=== PATIENT | male | born 1960 | race Caucasian/White ===

== ENCOUNTER 2023-09-28 23:00 | Inpatient (IN) | payer OTHER, SELFPAY ==
[2023-09-28] VITALS (11 sets, daily range): BP systolic 82–111; BP diastolic 38–66; BMI 27.8
[2023-09-28 21:19] LABS: % Basophils 0.8 % (0-2); % Eosinophils 0.9 % (0-6); % Immature Granulocytes 0.3 % (0-0.5); % Lymphocytes 14.8 % (20.5-51.1); % Monocytes 10.5 % (1.7-9.3); % Neutrophils 72.7 % (42.2-75.2); Absolute Basophils 0.1 10^3/uL (0-0.2); Absolute Eosinophils 0.1 10^3/uL (0-0.7); Absolute Lymphocytes 1.5 10^3/uL (1.2-3.4); Absolute Neutrophils 7.2 10^3/uL (1.4-6.5); Hematocrit 22.4 % (39.0-52.0); Hemoglobin 6.7 g/dL (13.0-18.0); Mean Corp Hgb Conc. 29.9 g/dL (33.0-37.0); Mean Corpuscular Hgb 20.6 pg (27.0-31.0); Mean Corpuscular Volume 68.9 fL (80.0-94.0); Mean Platelet Volume 10.1 fL (7.4-10.4); Nucleated Red Blood Cells % 0.5 % (-); Platelet Count 368 10^3/uL (130-400); Red Blood Cell Count 3.25 10^6/uL (4.70-6.10); Red Cell Dist. Width 17.1 % (11.5-14.5)
[2023-09-28 21:26] LABS: White Blood Cell Count 9.9 10^3/uL (4.8-10.8)
[2023-09-28 21:35] LABS: ALT (SGPT) 124 U/L (0-50); AST (SGOT) 154 U/L (17-59); Albumin 3.6 g/dl (3.5-5.0); Alkaline Phosphatase 114 U/L (38-126); Blood Urea Nitrogen 20 mg/dl (9-20); Calcium 8.8 mg/dl (8.4-10.2); Carbon Dioxide 21 mmol/L (22-30); Chloride 102 mmol/L (98-107); Estimated Creatinine Clearance 45 ml/min; Glucose 177 mg/dl (70-99); Lipase 210 U/L (23-300); Potassium 4.4 mmol/L (3.5-5.1); Sodium 134 mmol/L (135-145); Total Bilirubin 0.6 mg/dl (0.2-1.3); eGFR 42.56
[2023-09-28] MEDS: NSS 1000 IV (21:36)
[2023-09-28 21:43] LABS: Troponin I < 0.012 ng/ml
[2023-09-28] MEDS: PROTONIX IV 80 MG IV (21:49)
[2023-09-28] MEDS: PROTONIX 100 IV (21:49)
--- NOTE | 2023-09-28 21:54 | ED.GENMED ---
History of Present Illness
<Edenilson Armstrong PA-C - Last Filed: 09/28/23 22:55>
General
Chief Complaint: Abdominal Symptoms
Source: patient and spouse
Time Seen by Provider: 09/28/23 21:30
Travel History
Have you had any contact with someone who has COVID-19?: No
Do you have any symptoms of coronavirus? Fever > 100 degrees, chills, cough, shortness of breath, sore throat, loss of taste or smell, muscle aches, or headache?: No
History of Present Illness
History of Present Illness:
62-year-old male with past medical history of CVA, hypertension, hyperlipidemia, A-fib, possible history of upper GI bleeding presenting to the emergency department via EMS for evaluation after patient reported a 'stomach bug over the last week' and
today felt generally weak, short of breath and generally unwell. When asked what type of symptoms patient had with his stomach bug he states that he felt that he could not go to the bathroom or have a bowel movement and felt as if his stomach was
distended and when he would eat he would get early satiety. Patient denied any nausea or vomiting to me as well as diarrhea. Patient was asked about dark stools or melanotic stools and he denied this to me as well. EMS reports that upon their
arrival they noted patient's heart rate would drop to 40 bpm and they did give him a 1 mg dose of atropine. Patient states he took an at extra episode of Cardizem and flecainide because he missed his dose yesterday so took 2 total doses today. He
denies any fevers, chills, rigors, chest pain. Patient denies any frequent use of NSAIDs. He is anticoagulated on Eliquis due to his history of A-fib and previous CVA and reports good compliance with this. Patient denied any significant alcohol
use to me despite it being documented history of alcohol abuse in previous chart.
Past History
<Edenilson Armstrong PA-C - Last Filed: 09/28/23 22:55>
Past History
ED Past Medical History: Arrthythmia (Atrial fibrillation/flutter), CVA (TIA 2014), HTN and Hypercholesterolemia
ED Past Surgical History: None
Social History
Tobacco: Non-smoker
Alcohol: Occasional
Drug: None
Personal:
Living: with family
Employment: Employed
Family History
Family History: Other ( with covid)
Review of Systems
<Edenilson Armstrong PA-C - Last Filed: 09/28/23 22:55>
Review of Systems
All Other Systems: ROS reviewed and negative except as documented in HPI and ROS
Phy Exam
<Edenilson Armstrong PA-C - Last Filed: 09/28/23 22:55>
Physical Exam
Physical Exam:
GENERAL: Alert , in no apparent distress
EYES: clear conjunctiva
NECK: Supple,
ENT: o/p clr, mmm.
CARDIAC: Bradycardic rate and rhythm, no murmur.
LUNGS: Clear breath sounds bilaterally, no acute respiratory distress, no wheezes/rales/rhonchi, mild tachypnea
abdomen: Slightly distended but otherwise soft and normoactive bowel sounds
Rectal exam: Chaperoned by ED BRUNO Chen: Multiple nonthrombosed external hemorrhoids with no active bleeding. There is no stool within the rectal vault to check a Hemoccult
NEUROLOGICAL: Alert and oriented
SKIN: Warm and dry, skin intact.
MUSCULOSKELETAL: No edema, well perfused.
PSYCH: Normal and appropriate interaction.
Scores
<Edenilson Armstrong PA-C - Last Filed: 09/28/23 22:55>
Heart Failure Risk
Heart Failure Risk Score: Not Applicable
Heart Score for Chest Pain Patients
STEMI patient?: Not applicable
Withdrawal Assessment of Alcohol
Withdrawal Assessment Completed?: Not applicable
Course
<Edenilson Armstrong PA-C - Last Filed: 09/28/23 22:55>
Orders/Labs/Results
Orders:
Orders
09/28/23 21:06
Electrocardiogram (*1) Urgent
Reason for Study: Abdominal Pain
IV Insert/Care/Rem.- Treatment PRN
09/28/23 21:07
EKG- Treatment ONCE
09/28/23 21:10
Acetaminophen Urgent
Comment: ADD ON
Alcohol Urgent
Complete Blood Count/With Diff Urgent
Comprehensive Metabolic Panel Urgent
Lipase Urgent
Magnesium Urgent
Comment: ADD ON
Troponin I Urgent
09/28/23 21:29
Type+Screen Urgent
PTT Urgent
09/28/23 21:31
Blood Bank Products [* Blood Bank Products] Urgent
Blood Bank Products: *Packed RBC Leuko(PRBC's)
Quantity: 1
Transfuse Today: Yes
Reason: Anemia
09/28/23 21:36
0.9% Sodium Chloride 1000 ml [Nss] 1,000 ml IV BOLUS
09/28/23 21:44
Pantoprazole [Protonix IV] 80 mg IV NOW STA
09/28/23 21:45
Add On- LAB Urgent
Tests Added?: magnesium/ETOH
Pantoprazole 80 mg/100 ml Nss [Protonix] 80 mg in 100 ml IV Q10H
09/28/23 21:46
Add On- LAB Urgent
Tests Added?: tylenol level
Abnormal Lab Results
09/28/23 09/28/23
21:10 21:29
RBC 3.25 L 10^6/uL
(4.70-6.10)
Hgb 6.7 L* g/dL
(13.0-18.0)
Hct 22.4 L %
(39.0-52.0)
MCV 68.9 L fL
(80.0-94.0)
MCH 20.6 L pg
(27.0-31.0)
MCHC 29.9 L g/dL
(33.0-37.0)
RDW 17.1 H %
(11.5-14.5)
Absolute Neuts (auto) 7.2 H 10^3/uL
(1.4-6.5)
Absolute Monos (auto) 1.0 H 10^3/uL
(0.1-0.6)
Lymphocytes % 14.8 L %
(20.5-51.1)
Monocytes % 10.5 H %
(1.7-9.3)
Sodium 134 L mmol/L
(135-145)
Carbon Dioxide 21 L mmol/L
(22-30)
Creatinine 1.8 H mg/dL
(0.7-1.3)
Glucose 177 H mg/dl
(70-99)
AST 154 H U/L
(17-59)
ALT 124 H U/L
(0-50)
Total Protein 6.0 L g/dl
(6.3-8.2)
Acetaminophen < 10 L ug/ml
(10-30)
Crossmatch IS Only See Detail
09/28/23 21:10
09/28/23 21:10
Vital Signs
Initial and Last Documented VS:
Initial Vital Signs
BP
97/54
09/28/23 21:07
Last Documented Vital Signs
Temp Pulse Resp BP Pulse Ox
97.5 F 51 19 98/66 95
09/28/23 22:44 09/28/23 22:44 09/28/23 22:44 09/28/23 22:44 09/28/23 22:44
<Romario Castro MD - Last Filed: 09/28/23 22:52>
Orders/Labs/Results
Orders:
Orders
09/28/23 21:06
Electrocardiogram (*1) Urgent
Reason for Study: Abdominal Pain
IV Insert/Care/Rem.- Treatment PRN
09/28/23 21:07
EKG- Treatment ONCE
09/28/23 21:10
Acetaminophen Urgent
Comment: ADD ON
Alcohol Urgent
Complete Blood Count/With Diff Urgent
Comprehensive Metabolic Panel Urgent
Lipase Urgent
Magnesium Urgent
Comment: ADD ON
Troponin I Urgent
09/28/23 21:29
Type+Screen Urgent
PTT Urgent
09/28/23 21:31
Blood Bank Products [* Blood Bank Products] Urgent
Blood Bank Products: *Packed RBC Leuko(PRBC's)
Quantity: 1
Transfuse Today: Yes
Reason: Anemia
09/28/23 21:36
0.9% Sodium Chloride 1000 ml [Nss] 1,000 ml IV BOLUS
09/28/23 21:44
Pantoprazole [Protonix IV] 80 mg IV NOW STA
09/28/23 21:45
Add On- LAB Urgent
Tests Added?: magnesium/ETOH
Pantoprazole 80 mg/100 ml Nss [Protonix] 80 mg in 100 ml IV Q10H
09/28/23 21:46
Add On- LAB Urgent
Tests Added?: tylenol level
Abnormal Lab Results
09/28/23 09/28/23
21:10 21:29
RBC 3.25 L 10^6/uL
(4.70-6.10)
Hgb 6.7 L* g/dL
(13.0-18.0)
Hct 22.4 L %
(39.0-52.0)
MCV 68.9 L fL
(80.0-94.0)
MCH 20.6 L pg
(27.0-31.0)
MCHC 29.9 L g/dL
(33.0-37.0)
RDW 17.1 H %
(11.5-14.5)
Absolute Neuts (auto) 7.2 H 10^3/uL
(1.4-6.5)
Absolute Monos (auto) 1.0 H 10^3/uL
(0.1-0.6)
Lymphocytes % 14.8 L %
(20.5-51.1)
Monocytes % 10.5 H %
(1.7-9.3)
Sodium 134 L mmol/L
(135-145)
Carbon Dioxide 21 L mmol/L
(22-30)
Creatinine 1.8 H mg/dL
(0.7-1.3)
Glucose 177 H mg/dl
(70-99)
AST 154 H U/L
(17-59)
ALT 124 H U/L
(0-50)
Total Protein 6.0 L g/dl
(6.3-8.2)
Acetaminophen < 10 L ug/ml
(10-30)
Crossmatch IS Only See Detail
09/28/23 21:10
09/28/23 21:10
Vital Signs
Initial and Last Documented VS:
Initial Vital Signs
BP
97/54
09/28/23 21:07
Last Documented Vital Signs
Temp Pulse Resp BP Pulse Ox
97.5 F 51 19 98/66 95
09/28/23 22:44 09/28/23 22:44 09/28/23 22:44 09/28/23 22:44 09/28/23 22:44
<Edenilson Armstrong PA-C - Last Filed: 09/28/23 22:55>
MDM/Problems Addressed
Differential Diagnosis Includes:
Suspect patient's bradycardia secondary to taking 2 doses of his Cardizem and flecainide. Electrolyte disturbance, less concern for an acute surgical abdomen, during exam patient's hemoglobin came back at 6.7 so there is clinical concern for GI
bleed. I do suspect patient is drinking more alcohol than what he is leading on to. Transaminitis I suspect is related to alcohol use. Patient also has a mild CHRISTIE
MDM/Problems Addressed:
62-year-old male present emergency department via EMS for evaluation with somewhat confusing history and patient does not seem to be forthcoming with certain information. He arrives hypotensive, found to have a hemoglobin of 6.7 and abnormal
chemistry findings. Patient was consented for packed red blood cells. We also treated patient with 1 L normal saline due to his hypotension here. Unfortunately patient did not have any stool to check for possible GI bleed but will cover with
Protonix bolus and drip. We did consider reversing patient's Eliquis with Kcentra but until we can confirm possible GI bleed decision was made to forego Kcentra at this time. Will notify hospitalist team to admit for continued evaluation and
treatment.
Chronic conditions affecting care: Arrhythmia
<Edenilson Armstrong PA-C - Last Filed: 09/28/23 22:55>
*Pulse Oximetry
Patient hypoxic: no
*EKG
Interpreted by ED Provider?: Yes
Comparison EKG: no changes
Heart Rate: 55
Rate: bradycardiac
Rhythm: a-fib
Teachey: normal axis
Ischemia: no ischemia
*Loss Prevention/Safety District Manager Interpretation
Rate: bradycardiac
Rhythm: a-fib
*Critical Care Note
Total Time (30-74mins, 75-104mins- exclusive of procedures): 30
comment:
Critical care statement: A total of 30 minutes of critical care time was provided for this patient. This includes management of unstable vital signs, evaluation of the patient at bedside, reviewing the patient's pertinent medical records, discussion
with consultants, review of old EKGs and review of pertinent medical records. This time with separate from time utilized to perform the aforementioned documented procedures
Data Reviewed
Review of Other/Old Records Reveals: Labs, Records and Discharge Summary
Source: patient
<Edenilson Armstrong PA-C - Last Filed: 09/28/23 22:55>
Patient Management
Discussion with other providers: Hospitalist
Escalation/DeEscalation of care consider admission/obs:
Patient did have a previous admission back in 2020 with a complicated admission due to a cardiopulmonary arrest. During that time patient did have abnormal hemoglobin however in 2021 patient did have a hemoglobin of 14.6 which I suspect is closer
to patient's baseline. Patient had a listed history of upper GI bleed but I could not find any records or GI consultation here at this facility so it is unclear as to if this is a true diagnosis. Given patient's current hypotension combined with
concern for GI bleeding and significant anemia plan was made to admit patient to hospitalist service and start in the ICU. Hospitalist accepts for continued evaluation and treatment.
ED Attending Note
<Edenilson Armstrong PA-C - Last Filed: 09/28/23 22:55>
-
Portions of this chart may have been created with voice recognition software.� Occasional wrong word or��sound alike� substitutions may have occurred due to the inherent limitations of voice recognition software.
<Romario Castro MD - Last Filed: 09/28/23 22:52>
ED Attending Note
Patient seen and examined by attending physician: Yes
I performed the substantive portion of visit, reviewed & personally made and approve the management plan that is documented in note by myself or VIOLETA.: Yes
ED Attending Note:
62-year-old male recurrent nausea and vomiting throughout the week. Had a few days of melanotic stool. Took an extra dose of Cardizem and flecainide today because he had missed doses earlier. Then had a near syncopal episode at home. Given
atropine for bradycardia and hypotension en route. Feels better at this time. Denies chest pain or shortness of breath
GENERAL: Alert and oriented in no apparent distress. Hypotensive
EYE: Orbits normal.
NECK: Supple, no significant adenopathy.
ENT: Pharynx without erythema
CARDIAC: Mildly bradycardic and irregular.
LUNGS: Clear breath sounds,normal
ABDOMEN: Soft, without focal tenderness or distention
NEUROLOGICAL: Alert and oriented , grossly non-focal
SKIN: Warm and dry, pale
MUSCULOSKELETAL: No edema,no deformity.Good color
PSYCH: Normal and appropriate interaction.
Previous testing reviewed. Rectal exam done by Mark with no significant stool. However description is of a upper GI bleed. Hemoglobin 6.7. Was normal previously. Patient likely complicated his issues with the dose of Cardizem and flecainide
today. Fluids blood Protonix drip. Hold on Cardizem. Do not feel a Kcentra candidate at this time. As he is not obviously actively bleeding send the right now. Previous testing labs reviewed.
Discharge Plan
Departure
Patient Disposition: Admit
Date of Disposition: 09/28/23
Time of Disposition: 21:55
Presentation/result/management discussed w/ accepting MD/DO: Hospitalist
Discharge Problem:
Anemia, Acute GI bleeding, Transaminitis, CHRISTIE (acute kidney injury)
Prescriptions:
No Action
folic acid 1 MG tablet
1 mg PO DAILY
rosuvastatin 40 MG tablet
40 mg PO DAILY
Eliquis 5 MG tablet
5 mg PO BID
flecainide [Tambocor] 150 MG tablet
150 mg PO BID
cyanocobalamin (vitamin B-12) [Vitamin B-12] 1,000 mcg Tablet
1,000 mcg PO DAILY
cholecalciferol (vitamin D3) [Vitamin D3] 25 mcg (1,000 unit) Capsule
25 mcg PO DAILY
ascorbic acid (vitamin C) [Vitamin C] 500 MG tablet
500 mg PO BID
valsartan 40 mg Tablet
40 mg PO DAILY
diltiazem HCl 120 MG capsule,extended release 24hr
240 mg PO DAILY
Interventions
Interventions:
*Risk Screen - Suicide Last Done: 09/28/23 21:08
*General Assessment Last Done: 09/28/23 21:08
*Neglect/Abuse Screening Last Done: 09/28/23 21:08
ED- Fall Risk Assessment Last Done: 09/28/23 21:56
*ED COVID-19 Vaccine History Last Done: 09/28/23 21:08
SK-Eignbc-Taddtbvaut Assessment Last Done: 09/28/23 21:56
[2023-09-28 22:02] LABS: Acetaminophen < 10 ug/ml (10-30); Magnesium 2.1 mg/dl (1.6-2.3)
[2023-09-28 22:05] LABS: Alcohol None Detected
[2023-09-28 22:22] LABS: APTT 32.1 Sec (23.4-35.0)
--- NOTE | 2023-09-28 23:29 | HPS.HSE ---
Family Physician
-
Family Physician: Dian Kumar
Chief Complaint
-
Fatigue, Abd Pain
History of Present Illness
Patient is a 62y M with PMH significant for A-Fib, hypertension, prior stroke and prior cardiac arrest who presents to ED complaining of abdominal pain and fatigue. Patient states that he initially developed epigastric pain about one week ago.
He has had fairly persistent symptoms since that time. He notes pain in the epigastric region with radiation into the mid back. Pos nausea without emesis. No heartburn / reflux symptoms.
Patient denies any lower abdominal pain, fevers / chills, chest pain or diaphoresis.
Patient states that he has been constipated recently. He notes that his stools have been very dark at times. He noted a very small amount of dark red blood in his stool yesterday.
Patient complains of feeling 'bloated'. He also notes that he has been very fatigued over the past week with exercise intolerance and dyspnea with activity.
Patient was admitted to in 05/2021. He had COVID-19 at that time and suffered a PEA arrest secondary to hypoxemic respiratory failure.
During that complicated admission, patient was also noted to have heme positive, melenic stools. He declined EGD at that time.
Medical History
Past Medical History
Past Medical History: Reports Other
Additional Past Medical History:
Paroxysmal Atrial Fibrillation
PEA Arrest (secondary to COVID / hypoxemic resp failure)
ASCVD / Prior CVA
Hypertension
1st degree AV Block
Past Surgical History: Reports Other
Additional Past Surgical History:
T&A
Hernia Repair
DCCV (multiple)
Social History
Tobacco: Non-smoker
Alcohol: Occasional
Drug: None
Personal:
Living: With Family
Family History
Family History: Not pertinent
Allergies / Home Medications
Allergies reflects when Allergies were last updated in [employer].
Home Medications with original date entered in [employer]
Allergy/Medication List:
Allergies
Allergy/AdvReac Type Severity Reaction Status Date / Time
No Known Allergies Allergy Verified 09/28/23 21:13
Home Medications
folic acid 1 mg tablet 1 mg PO DAILY Supplement 03/15/15
apixaban 5 mg tablet (Eliquis) 5 mg PO BID Blood clot prevention/tx 05/20/21
flecainide 150 mg tablet (Tambocor) 150 mg PO BID Arrhythmia 05/20/21
rosuvastatin 40 mg tablet 40 mg PO DAILY High cholesterol 05/20/21
ascorbic acid (vitamin C) 500 mg tablet (Vitamin C) 500 mg PO BID 04/20/22
cholecalciferol (vitamin D3) 25 mcg (1,000 unit) capsule (Vitamin D3) 25 mcg PO DAILY 04/20/22
cyanocobalamin (vitamin B-12) 1,000 mcg tablet (Vitamin B-12) 1,000 mcg PO DAILY 04/20/22
diltiazem HCl 120 mg capsule,extended release 24 hr 240 mg PO DAILY 09/28/23
valsartan 40 mg tablet 40 mg PO DAILY 09/28/23
Review of Systems
-
History Source: Patient and Family
A 12 point ROS was completed and negative except as noted: Yes
Constitutional: Reports Fatigue; Denies Fever or Chills
EENT: Denies Sore Throat
Respiratory: Reports Trouble Breathing; Denies Cough
Cardiac: Denies Chest Pain, Diaphoresis or Palpitations
Abdomen/GI: Reports Abdominal Pain, Nausea, Constipated, Bloody Stools, Black Stools and Anorexia; Denies Vomiting or Diarrhea
: Denies Dysuria or Frequency
Neurological: Denies Dizzy or Headache
Psych: Denies Depression or Anxiety
Physical Exam
Vital Signs
Vital Signs
Temp Pulse Resp BP Pulse Ox
97.5 F 42 16 91/53 94
09/28/23 23:01 09/28/23 23:15 09/28/23 23:15 09/28/23 23:01 09/28/23 23:15
Physical Exam
General: Other (62y M in no acute distress.)
HEENT: Moist mucous membranes and PERRLA
Respiratory: Clear; No Wheezes, Rales or Rhonchi
Cardiac: S1/S2 and Irregular Rhythm; No Murmur
GI: Soft, Non Distended, Normal Bowel Sounds and Other (Pos epigastric tenderness)
Musculoskeletal: No Clubbing, No Cyanosis and No Edema
Neuro: AO x 3
Laboratory Results
-
09/28/23 21:10
09/28/23 21:10
Laboratory Results
APTT 32.1 Sec (23.4-35.0) 09/28/23 21:29
Total Bilirubin 0.6 mg/dl (0.2-1.3) 09/28/23 21:10
AST 154 U/L (17-59) H 09/28/23 21:10
ALT 124 U/L (0-50) H 09/28/23 21:10
Alkaline Phosphatase 114 U/L (38-126) 09/28/23 21:10
Troponin I < 0.012 ng/ml 09/28/23 21:10
Lipase 210 U/L (23-300) 09/28/23 21:10
Impression/Plan
-
A/P: Patient is a 62y M with PMH significant for ASCVD, A-Fib and prior cardiac arrest who presents to ED complaining of abdominal pain and fatigue.
GI Bleeding
Acute Blood Loss Anemia
- Admit for further evaluation and treatment.
- Symptoms suggest upper GI source / possible PUD, etc.
- IV PPI infusion started in the ED.
- IVF / volume support.
- Hold Eliquis.
- GI evaluation / patient will likely benefit from EGD.
- Follow H&H and transfuse additional PRBCs as needed.
- Follow for any evidence of recurrent / ongoing bleeding.
Paroxysmal Atrial Fibrillation
Bradycardia
- Monitor on telemetry. Bradycardia noted in the ED with rates into the 40s.
- Holding parameters for chronotropic medications.
- Hold Eliquis given acute bleeding as noted above.
- Cardiology evaluation given bradycardia.
Renal Insufficiency
- SCr = 1.8. Remote baseline of 0.8, but most recent value (04/2022) was 1.6.
- Seems likely CKD III.
- Follow for changes in renal function / rule out CHRISTIE.
DVT Prophylaxis: SCDs
Code Status: Full
[2023-09-29] VITALS (45 sets, daily range): BP systolic 73–133; BP diastolic 45–94; BMI 27.8; BMI 27.6
[2023-09-29] MEDS: NSS 1000 IV ×3 (00:53→23:04)
[2023-09-29 01:54] LABS: Hematocrit 24.4 % (39.0-52.0)
[2023-09-29 01:55] LABS: Hemoglobin 7.8 g/dL (13.0-18.0)
[2023-09-29 02:20] LABS: Iron 25 ug/dl (49-181)
[2023-09-29 02:29] LABS: B-Hydroxybutyrate 0.49 mmol/L (0.02-0.27); Percent Saturation 4 % (20-50); Total Iron Binding Capacity 551 ug/dl (261-462)
[2023-09-29 02:40] LABS: Alcohol None Detected
[2023-09-29] MEDS: TESSALON PERLES 200 MG PO ×2 (03:36→16:02)
[2023-09-29] MEDS: DILAUDID 0.5 MG IV (03:41)
--- NOTE | 2023-09-29 04:14 | PTCARENOTE ---
report received from ed. pt transferred to [id number]. aaox3. sb to afib. hr in 40's. one unit prbc completed. nss @ 100cc/hr. Protonix gtt infusing. Tessalon pearls given for frequent dry cough. lungs diminished riddhi. 3lnc applied for intermittent
desaturation to mid 80%. bed alarm placed for safety. Will monitor.
[2023-09-29 05:03] LABS: Hematocrit 25.3 % (39.0-52.0); Hemoglobin 7.9 g/dL (13.0-18.0); Mean Corp Hgb Conc. 31.2 g/dL (33.0-37.0); Mean Corpuscular Hgb 22.4 pg (27.0-31.0); Mean Corpuscular Volume 71.7 fL (80.0-94.0); Mean Platelet Volume 10.5 fL (7.4-10.4); Platelet Count 357 10^3/uL (130-400); Red Blood Cell Count 3.53 10^6/uL (4.70-6.10); Red Cell Dist. Width 18.1 % (11.5-14.5); White Blood Cell Count 9.6 10^3/uL (4.8-10.8)
[2023-09-29 05:16] LABS: INR 1.99; PT 22.5 Sec (11.4-14.6)
[2023-09-29 05:17] LABS: APTT 34.4 Sec (23.4-35.0)
[2023-09-29 05:26] LABS: Blood Urea Nitrogen 26 mg/dl (9-20); Calcium 9.1 mg/dl (8.4-10.2); Carbon Dioxide 19 mmol/L (22-30); Chloride 103 mmol/L (98-107); Estimated Creatinine Clearance 41 ml/min; Glucose 126 mg/dl (70-99); Potassium 5.2 mmol/L (3.5-5.1); Sodium 135 mmol/L (135-145)
--- NOTE | 2023-09-29 06:36 | PTCARENOTE ---
pt urinated 100 cc cory urine all shift. bladder scanned for 104. will monitor.
--- NOTE | 2023-09-29 07:00 | PTCARENOTE ---
Received at 0700 in bed. Denies pain . VSS NSS infusing at 100 cc+Protonix . pt in 2L of o2
--- NOTE | 2023-09-29 07:29 | CON.INTV ---
Consultation
Consultation Request
Date/Time Consultation Requested: 09/29/2023-7 AM
Date/Time Consultation Performed: 09/29/2023-7:30 AM
Requesting Provider: Hospitalist
Performing Provider: Dr. Hinson
Reason for Consultation: GI bleed
Medical History
-
Chief Complaint: GI bleed
History of Present Illness:
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
consulted for GI bleed/critical care management 09/29/2023. He had epigastric pain with radiation to the mid back with some nausea without emesis. He did not complain of any heartburn or chronic reflux. Denies any lower abdominal pain, fevers,
chills, chest pain, shortness of breath or diaphoresis. He does have a chronic cough that states has been present off and on since his covid infection. When he was in [place] for 6 months his cough disappeared. he does not complain of any wheezing.
Past Medical History
Past Medical History: None (Hypertension. Atrial fibrillation. First-degree AV block. Prior CVA. Cardiac arrest/PEA secondary to hypoxemic respiratory failure during covid infection. Covid infection requiring hospitalization 05/2021.
Tonsillectomy. Hernia repair.)
Social History
Tobacco: Non-smoker
Alcohol: Occasional
Drug: None
Personal:
Living: With Family
Occupational Exposures: No known asbestos exposure
Environmental Exposures: No known tuberculosis exposure
Family History
Family History: Reviewed & Not Pertinent
Allergies / Home Medications
Allergies
Allergy/AdvReac Type Severity Reaction Status Date / Time
No Known Allergies Allergy Verified 09/28/23 21:13
Home Medications
Medication Instructions Recorded Confirmed Last Taken Type
folic acid 1 mg tablet 1 mg PO DAILY Supplement 03/15/15 09/28/23 04/19/22 06:00 History
apixaban 5 mg tablet (Eliquis) 5 mg PO BID Blood clot 05/20/21 09/28/23 04/19/22 17:00 History
prevention/tx
flecainide 150 mg tablet (Tambocor) 150 mg PO BID Arrhythmia 05/20/21 09/28/23 04/19/22 17:00 History
rosuvastatin 40 mg tablet 40 mg PO DAILY High cholesterol 05/20/21 09/28/23 04/19/22 05:00 History
ascorbic acid (vitamin C) 500 mg 500 mg PO BID 04/20/22 09/28/23 04/19/22 05:00 History
tablet (Vitamin C)
cholecalciferol (vitamin D3) 25 25 mcg PO DAILY 04/20/22 09/28/23 04/19/22 05:00 History
mcg (1,000 unit) capsule (Vitamin
D3)
cyanocobalamin (vitamin B-12) 1,000 mcg PO DAILY 04/20/22 09/28/23 04/19/22 05:00 History
1,000 mcg tablet (Vitamin B-12)
diltiazem HCl 120 mg 240 mg PO DAILY 09/28/23 09/28/23 Unknown History
capsule,extended release 24 hr
valsartan 40 mg tablet 40 mg PO DAILY 09/28/23 09/28/23 Unknown History
Review of Systems
-
Unable to Obtain full review of systems at this time due to: Other (Per HPI)
Vitals / Labs / Diagnostic Testing
Vital Signs
Temp Pulse Resp BP Pulse Ox
97.5 F 47 23 127/68 94
09/29/23 06:25 09/29/23 06:45 09/29/23 06:45 09/29/23 06:45 09/29/23 06:45
Lab Data
09/29/23 04:48
Laboratory Results
09/28/23 09/29/23
21:29 04:48
PT 22.5 H
INR 1.99
APTT 32.1 34.4
Diagnostic Testing:
Physical Exam
-
Exam:
Well-nourished and well-developed in no apparent distress
HEENT-atraumatic, normocephalic
Neck-supple, no JVD, no bruit
Heart-regular rate and rhythm-no murmurs, rubs or gallops
Chest-clear to auscultation, no wheezes, crackles
Back-no tenderness
Abdomen-soft, nontender, nondistended, no hepatosplenomegaly
Extremities-no cyanosis, clubbing, edema and good peripheral pulses
Integument-intact, no rashes, lesions or ecchymosis
Neurology-alert and oriented, nonfocal motor and sensory exam
Assessment
-
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
consulted for GI bleed/critical care management 09/29/2023.
Assessment
GI bleed
Anemia due to acute blood loss-hemoglobin 6.7
Bradycardia-heart rate in the 40s
CHRISTIE
Metabolic acidosis
Hyperglycemia
Conditions present prior to admission:
Hypertension.
PAF-on high-dose flecainide and diltiazem
First-degree AV block.
Prior CVA-large left cerebellar, left occipital and left temporal
Cardiac arrest/PEA secondary to hypoxemic respiratory failure during covid infection.
Covid infection requiring hospitalization 05/2021.
Cylindrical bronchiectasis noted on CT 2021
Pulmonary nodule-8 mm right middle lobe noted CT chest 05/2022 recommended to have follow-up 6-12 months-patient never obtained
History of C. difficile colitis-06/2021
Tonsillectomy. Hernia repair. Appendectomy
Plan
Patient will be admitted to medical intensive care with active bleeding, critically ill and in need of resuscitation
Supplemental oxygen as needed
Aspiration precautions
Incentive spirometry
Nebulizers if needed-currently no bronchospasm
Patient has a chronic cough which is off-and-on since 2020 covid infection
Repeat covid test-pending
Monitor hemoglobin
Transfuse packed red blood cells and FFP as needed
Monitor coagulopathy
GI evaluation pending
Endoscopy per GI-cleared from a pulmonary and cardiac perspective
PPI drip
Cardiology evaluation-correspondence reviewed
Flecainide high-dose and diltiazem continues
Monitor bradycardia and reduce medications
Monitor renal function
Nephrology evaluation if renal function does not improve
Monitor blood sugar
Insulin supplementation as needed
DVT prophylaxis-mechanical
GI prophylaxis
Aspiration precautions
Nutrition
Early mobilization
Patient was last seen 05/10/[address] Parks and he canceled his 09/07/2022 appointment-sleep study was recommended at that time, follow-up CT chest was also recommended which patient never obtained-strongly recommend outpatient pulmonary/sleep
disorders follow-up
Critical care statement: A total of 45 minutes of critical care time was provided for this patient today. This includes management of unstable vital signs, management of transfusions, evaluation of the patient at bedside, reviewing the patient's
pertinent medical records including radiographs, microbiology, laboratory evaluations, and discussion with primary team, consultants, pharmacy, nutrition, physical therapy, case management, charge nurse, critical care nursing, and respiratory
therapy.
Diagnostic data:
Chest x-ray 09/29/2023-prominent interstitial markings, interstitial edema or pneumonitis versus acute superimposed on chronic changes
CT chest 09/27/2021-moderate amounts of groundglass opacification, scarring of the right lower lobe, cylindrical bronchiectasis right lower lobe,
CT chest 05/30/2022-groundglass opacification seen on prior CT have significantly improved and resolved, 8 mm nodular opacification peripheral right middle lobe has increased in size compared to prior CT at which time it measured 3 [id number] CT
recommended 6-12 months,
Echocardiogram 05/2021-EF 60-65%, PA systolic 33
Exercise treadmill stress test August 2023-nonspecific ST and T wave changes
PFT 10/26/2021-FEV1 2.7-79%, FVC 3.6-79%, TLC 70%, RV 49%, DLCO 64%, DLCO/VA 91%
Data Reviewed
-
EKG: Report reviewed by me
Radiology: Report reviewed by me
CT Scan: Report reviewed by me
Medical Tests (Nuc Med, Echo etc): Report reviewed by me
Labs: Labs reviewed by me
Old Records: Reviewed
Critical Care Time (in minutes): 45
[2023-09-29] MEDS: THIAMINE INJECTION 200 MG IV ×2 (08:59→19:52)
[2023-09-29] MEDS: FOLVITE 1 MG PO (08:59)
--- NOTE | 2023-09-29 09:01 | CON.CAR ---
Addendum entered and electronically signed by Fran Johnson MD 09/29/23 09:42:
Also, given concerns about potential excessive slowing of heart rate and conduction, reduce flecainide to 100 mg twice daily. Possibly reinstitute diltiazem at lower dose based on clinical course.
Original Note:
Consultation
Consultation Request
Date/Time Consultation Requested: 09/28/2023 at 11:30 PM
Date/Time Consultation Performed: 09/28/2023 at 9:28 AM
Requesting Provider: Dr. Bustillo
Performing Provider: Fran Johnson
Reason for Consultation: Bradycardia
Medical History
-
Chief Complaint: Abdominal pain with melena
History of Present Illness:
62-year-old man with a history of atrial fibrillation and prior stroke now with melena and admitted with GI bleeding and hemoglobin of 6.7. Found to be bradycardic with heart rate in the 40s on diltiazem and flecainide. He is noncompliant, misses
doses, says that he may have 'doubled up' also with acute kidney injury. No complaints of atrial fibrillation or other cardiac complaints.
PMH:
Paroxysmal atrial fibrillation, status post cardioversion November 2022, on high-dose flecainide and diltiazem
History of stroke, large left cerebellar, left occipital and left temporal stroke
Hypertension
History of COVID with respiratory arrest
Hyperlipidemia
History of C. difficile
History of GI bleed 2020
Past Medical History
Past Medical History: CVA and Other (See HPI)
Past Surgical History: Appendectomy, Tonsilectomy and Other (Herniorrhaphy)
Social History
Tobacco: Former Smoker
Alcohol: Occasional
Drug: None
Personal:
Living: With Family
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
Family History
Family History: Reviewed & Not Pertinent
Allergies / Home Medications
Allergy/AdvReac Type Severity Reaction Status Date / Time
No Known Allergies Allergy Verified 09/28/23 21:13
Medication Instructions Recorded Confirmed Type
folic acid 1 mg tablet 1 mg PO DAILY Supplement 03/15/15 09/28/23 History
apixaban 5 mg tablet (Eliquis) 5 mg PO BID Blood clot 05/20/21 09/28/23 History
prevention/tx
flecainide 150 mg tablet (Tambocor) 150 mg PO BID Arrhythmia 05/20/21 09/28/23 History
rosuvastatin 40 mg tablet 40 mg PO DAILY High cholesterol 05/20/21 09/28/23 History
ascorbic acid (vitamin C) 500 mg 500 mg PO BID Supplement 04/20/22 09/28/23 History
tablet (Vitamin C)
cholecalciferol (vitamin D3) 25 25 mcg PO DAILY Supplement 04/20/22 09/28/23 History
mcg (1,000 unit) capsule (Vitamin
D3)
cyanocobalamin (vitamin B-12) 1,000 mcg PO DAILY Supplement 04/20/22 09/28/23 History
1,000 mcg tablet (Vitamin B-12)
diltiazem HCl 120 mg 240 mg PO DAILY Heart 09/28/23 09/28/23 History
capsule,extended release 24 hr Disease/Condition
valsartan 40 mg tablet 40 mg PO DAILY Blood Pressure 09/28/23 09/28/23 History
Review of Systems
-
All other systems: Negative unless noted
Physical Exam
Vital Signs
Temp Pulse Resp BP Pulse Ox
36.4 C 47 23 127/68 94
09/29/23 06:25 09/29/23 06:45 09/29/23 06:45 09/29/23 06:45 09/29/23 06:45
Lab Results
09/29/23 04:48
Troponin I < 0.012 ng/ml 09/28/23 21:10
Physical Exam
General: No Apparent Distress
HEENT: Normocephalic
Respiratory: Clear
Cardiac: S1/S2
Impression / Plan
-
Impression:
GI bleed with hemoglobin 6.7
Suspect upper GI source with subacute blood loss and iron deficiency
Paroxysmal atrial fibrillation, status post cardioversion November 2022, on high-dose flecainide and diltiazem
History of stroke, large left cerebellar, left occipital and left temporal stroke
Hypertension
History of COVID with respiratory arrest
Hyperlipidemia
History of C. difficile
History of GI bleed 2020
Noncompliance
Exercise treadmill test August 2023: 6 minutes Mike protocol, nonspecific ST and T wave changes at peak
Echocardiogram May 2021: Mild LVH, EF 60-65%, normal RV, normal atria, trace MR, normal aortic valve, pulmonary artery systolic pressure 33
Plan:
He is markedly bradycardic related to the combination of diltiazem and flecainide and given issues of noncompliance may have overdosed. At this point I would hold diltiazem. Continue flecainide 150 mg twice daily.
.
Okay to hold Eliquis, eventual restart after endoscopic evaluation is complete.
Endoscopy could be performed safely from cardiac standpoint.
I do not think he needs a repeat echo at this time.
Data Reviewed
-
EKG: Tracing Personally Visualized and interpreted (Marked sinus bradycardia with first-degree AV block, with sinus arrhythmia, IVCD, nonspecific ST and T changes)
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
Labs: Labs Reviewed by me (Hemoglobin 6.7, MCV 71, INR is 1.99, potassium is 5.2, BUN and creatinine are 26 and 2.0, creatinine was normal in 2020, 1.24 April 2022, glucose 126, iron level is 25, troponin is undetectable)
Old Records: Reviewed
[2023-09-29] MEDS: PROTONIX 100 IV ×2 (09:03→18:10)
--- NOTE | 2023-09-29 09:23 | CON.GI ---
Consultation
-
Date/Time Consultation Requested: 09/29/2023
Date/Time Consultation Performed: 09/29/2023
Requesting Provider: Dr. Oro
Performing Provider: Dr. Alva
Reason for Consultation: Abdominal pain
Medical History
Chief Complaint / HPI
Chief Complaint: Epigastric pain
History of Present Illness:
62-year-old male with history of hypertension, CVA, CAD, atrial fibrillation on Eliquis presenting with complaints of melena, abdominal pain, epigastric in the last 1 week. He reports that he was also having some discomfort in the lower abdomen but
now his abdominal pain is completely better. No bloating. No nausea, vomiting, heartburn or trouble swallowing. Reports recent constipation couple of weeks ago, took laxatives twice, last bowel movement 2 days ago. He noted black stool about a
week ago, last bowel movement 2 days ago was not black as per patient. No abdominal bloating. No weight loss. No NSAID use. He did have bradycardia this admission.
History of PEA due to hypoxic respiratory failure in 2020 from [facility]. At that time he had melena with heme positive stool but declined EGD.
History of alcohol abuse previously but now reports having 350 mL drinks a week, during admission in 2020 Hgb 8.8 , down from 11.1 with black heme + stool in ED. Iron studies reveal low iron levels and % sat and his LFTS are notably elevated with
AST 122, ALT 112, ALP 296.� Hepatitis serologies at that time were negative and abdominal ultrasound was negative.
He states he had and EGD and colon approximately 6 years ago by a doctor in [facility] and was told no abnormalities noted. States his black stools are intermittent and have been ongoing for years. Denies iron supplementation or Pepto Bismol
intake. Former smoker. He could not recall name of MD who did his prior GI procedures but planned to obtain in interim. States colonoscopy was for CRC screening and endoscopy was just to 'check'. No family h/o CRC, stomach or esophageal CA.
Past Medical History
Past Medical History: Arrhythmias, CAD, CVA and HTN
Past Surgical History: Other (Hernia repair)
Social History
Tobacco: Former Smoker
Alcohol: Occasional
Family History
Family History: Reviewed & Not Pertinent
Allergies / Home Medications
Allergy/AdvReac Type Severity Reaction Status Date / Time
No Known Allergies Allergy Verified 09/28/23 21:13
Medication Instructions Recorded
folic acid 1 mg tablet 1 mg PO DAILY Supplement 03/15/15
apixaban 5 mg tablet (Eliquis) 5 mg PO BID Blood clot 05/20/21
prevention/tx
flecainide 150 mg tablet (Tambocor) 150 mg PO BID Arrhythmia 05/20/21
rosuvastatin 40 mg tablet 40 mg PO DAILY High cholesterol 05/20/21
ascorbic acid (vitamin C) 500 mg 500 mg PO BID Supplement 04/20/22
tablet (Vitamin C)
cholecalciferol (vitamin D3) 25 25 mcg PO DAILY Supplement 04/20/22
mcg (1,000 unit) capsule (Vitamin
D3)
cyanocobalamin (vitamin B-12) 1,000 mcg PO DAILY Supplement 04/20/22
1,000 mcg tablet (Vitamin B-12)
diltiazem HCl 120 mg 240 mg PO DAILY Heart 09/28/23
capsule,extended release 24 hr Disease/Condition
valsartan 40 mg tablet 40 mg PO DAILY Blood Pressure 09/28/23
Review of Systems
-
All other systems: A 12 pt ROS was Negative except as stated above in HPI
Vital Signs
Temp Pulse Resp BP Pulse Ox
97.5 F 47 23 127/68 94
09/29/23 06:25 09/29/23 06:45 09/29/23 06:45 09/29/23 06:45 09/29/23 06:45
Physical Exam
Exam
HEENT: Normocephalic
Cardiac: S1/S2
GI: Soft, Non Tender, Non Distended and Normal Bowel Sounds
Neuro: AO x 3
Results
WBC 9.6 10^3/uL (4.8-10.8) 09/29/23 04:48
Hgb 7.9 g/dL (13.0-18.0) L 09/29/23 04:48
Hct 25.3 % (39.0-52.0) L 09/29/23 04:48
MCV 71.7 fL (80.0-94.0) L 09/29/23 04:48
Plt Count 357 10^3/uL (130-400) 09/29/23 04:48
Absolute Neuts (auto) 7.2 10^3/uL (1.4-6.5) H 09/28/23 21:10
PT 22.5 Sec (11.4-14.6) H 09/29/23 04:48
INR 1.99 09/29/23 04:48
APTT 34.4 Sec (23.4-35.0) 09/29/23 04:48
Sodium 135 mmol/L (135-145) 09/29/23 04:48
Potassium 5.2 mmol/L (3.5-5.1) H 09/29/23 04:48
Chloride 103 mmol/L (98-107) 09/29/23 04:48
Carbon Dioxide 19 mmol/L (22-30) L 09/29/23 04:48
BUN 26 mg/dl (9-20) H 09/29/23 04:48
Creatinine 2.0 mg/dL (0.7-1.3) H 09/29/23 04:48
Calcium 9.1 mg/dl (8.4-10.2) 09/29/23 04:48
Total Bilirubin 0.6 mg/dl (0.2-1.3) 09/28/23 21:10
AST 154 U/L (17-59) H 09/28/23 21:10
ALT 124 U/L (0-50) H 09/28/23 21:10
Alkaline Phosphatase 114 U/L (38-126) 09/28/23 21:10
Lipase 210 U/L (23-300) 09/28/23 21:10
Diagnostic Image Results:
Prior GI Procedures:
EGD:
Colonoscopy:
Assessment / Plan
-
62-year-old male with past medical history of A. fib on Eliquis, CVA 2014, presenting with melena about a week ago and also abdominal pain, in the ER, noted to have anemia with a hemoglobin of 6.7, microcytosis, Iron deficiency , also reports
intermittent black stool for few years. Similar presentation in 2020 with Hgb 8.8 from 11.1 with black heme + stool, declined EGD at that time. He states he had and EGD and colon approximately 6 years ago by a doctor in [facility] and
reportedly with no abnormalities noted. Denies iron supplementation or Pepto Bismol intake. He denies NSAID use regularly, No family h/o CRC, stomach or esophageal CA.
Impression:
Melena- black heme + stools ongoing for years albeit intermittent per pt
Symptomatic normocytic anemia- presumably from UGIB in s/o Eliquis
Elevated LFTs- hepatocellular pattern , chronic ETOH use though denies daily use
Afib- on Eliquis, last dose 09/28/23
CVA
HTN
HLD
Gout
Plan:
Suspect UGI r/u PUD , esophagitis, gastritis, ulcer disease
Agree with PPI infusion
SOB likely worse in s/o anemia
Transfusion per primary team� would aim to keep Hgb >8
Trend H&H and LFTs
Clears ok for now. N.p.o. past midnight for EGD in a.m.
Will check celiac panel
T/C Venofer initiation
Will follow
-
-
Thank you for consultation and allowing me to participate in the patient's care. Please call the production service manager GI physician during the after hours with any questions or concerns.
[2023-09-29 12:36] LABS: Hematocrit 24.3 % (39.0-52.0); Hemoglobin 7.7 g/dL (13.0-18.0)
[2023-09-29 12:47] LABS: Amphetamines Negative (Negative); Barbiturates Negative (Negative); Benzodiazepines Negative (Negative); Buprenorphine Negative (Negative); Cocaine Negative (Negative); Marijuana Negative (Negative); Methadone Negative (Negative); Methamphetamines Negative (Negative); Opiates Positive (Negative); Phencyclidine Negative (Negative); Tricyclic Antidepressants Negative (Negative)
[2023-09-29 13:49] LABS: Fentanyl, Urine Negative (Negative)
--- NOTE | 2023-09-29 15:54 | PTCARENOTE ---
1200 Hgb 7.7 . Iron level this am 25 Iron Gluconate will be administered
[2023-09-29] MEDS: FERRLECIT 110 MG IV (16:03)
--- NOTE | 2023-09-29 16:10 | W.PN.HOSP.TC ---
Today's Communication/Plan
-
GI consult
holding Eliquis (last dose 2/10 AM dose)
trend Hgb, transfuse if declines further
Assessment / Plan
Assessment / Plan
A/P:� Patient is a 62y M with PMH significant for ASCVD, A-Fib and prior cardiac arrest who presents to ED complaining of abdominal pain and fatigue.
GI Bleeding
Acute Blood Loss Anemia
�- Symptoms suggest upper GI source / possible PUD, etc.
�- IV PPI infusion started in the ED.
�- IVF / volume support.
�- Hold Eliquis.
�- GI evaluation / patient will likely benefit from EGD.
�- Follow H&H and transfuse additional PRBCs as needed.
1 unit transfused
�- Follow for any evidence of recurrent / ongoing bleeding.
admit 6.7-transfused 1 unit-->7.8-->7.9-->7.7
follow Hgb, consider 2nd unit
ordered IV Fe
%Fe sat 4%
Paroxysmal Atrial Fibrillation
Bradycardia
�- Monitor on telemetry.� Bradycardia noted in the ED with rates into the 40s.
�- Holding parameters for chronotropic medications.
�- Hold Eliquis given acute bleeding as noted above.
�- Cardiology evaluation given bradycardia.
Renal Insufficiency
�- SCr = 1.8.� Remote baseline of 0.8, but most recent value (04/2022) was 1.6.
�- Seems likely CKD III.
�- Follow for changes in renal function / rule out CHRISTIE.
DVT Prophylaxis:� SCDs
Code Status:� Full
reviewed with at bedside
Anticipated Discharge: > 48 hours
Subjective/Interval History
-
Date of Service: September 29, 2023
Awake, alert, conversant
Objective Data
-
Labs:
Laboratory Results
09/29/23 09/29/23
04:48 12:27
WBC 9.6
Hgb 7.9 L 7.7 L
Hct 25.3 L 24.3 L
Plt Count 357
PT 22.5 H
INR 1.99
APTT 34.4
Sodium 135
Potassium 5.2 H
Chloride 103
Carbon Dioxide 19 L
BUN 26 H
Creatinine 2.0 H
Glucose 126 H
Calcium 9.1
Vital Signs:
Vital Signs
Temp Pulse Resp BP Pulse Ox
98.4 F 51 13 118/94 97
09/29/23 15:30 09/29/23 15:45 09/29/23 15:45 09/29/23 15:18 09/29/23 15:00
I&O
09/28/23 09/29/23 09/30/23
06:59 06:59 06:59
Intake Total 690 / 800 990 / 990
Output Total 100 / 100 500 / 500
Balance 590 / 700 490 / 490
Review of Systems
-
History Source: Patient, Family ( at bedside) and Coordinated Provider
Constitutional: Denies Fever
Respiratory: Reports No Symptoms
Cardiac: Reports No Symptoms; Denies Chest Pain
Genitourinary: Reports No Symptoms
Neuro: Reports No Symptoms
Physical Exam
-
General: Well Developed, Well Nourished and No Apparent Distress
HEENT: Normocephalic, Atraumatic and Moist Mucous Membranes
Respiratory: Rales (atelectatic rales rt base); Negative Wheezes or Rhonchi
Cardiac: Regular Rhythm and S1/S2
GI: Nontender and Nondistended
Musculoskeletal: No Clubbing, No Cyanosis and No Edema
Neuro: Awake, Alert and Oriented
[2023-09-29 16:17] LABS: Folate > 20.0 ng/ml (2.76-20); Vitamin B12 > 1000 pg/ml (239-931)
[2023-09-29 18:12] LABS: Hematocrit 22.9 % (39.0-52.0); Hemoglobin 7.3 g/dL (13.0-18.0)
[2023-09-29] MEDS: TAMBOCOR 100 MG PO (19:52)
[2023-09-30] VITALS (16 sets, daily range): BP systolic 113–155; BP diastolic 71–121; BMI 28.1
--- NOTE | 2023-09-30 | PTCARENOTE ---
sys reviewed, NPO for egd in am, CHG bath done,linens changed
[2023-09-30 01:47] LABS: IgA 326 mg/dl (70-400)
[2023-09-30 03:34] LABS: Hematocrit 27.3 % (39.0-52.0); Hemoglobin 8.4 g/dL (13.0-18.0); Mean Corp Hgb Conc. 30.8 g/dL (33.0-37.0); Mean Corpuscular Hgb 22.8 pg (27.0-31.0); Mean Corpuscular Volume 74.2 fL (80.0-94.0); Mean Platelet Volume 10.9 fL (7.4-10.4); Platelet Count 303 10^3/uL (130-400); Red Blood Cell Count 3.68 10^6/uL (4.70-6.10); Red Cell Dist. Width 18.8 % (11.5-14.5); White Blood Cell Count 9.2 10^3/uL (4.8-10.8)
[2023-09-30] MEDS: TESSALON PERLES 200 MG PO ×2 (03:47→08:54)
[2023-09-30] MEDS: PROTONIX 100 IV (03:49)
--- NOTE | 2023-09-30 03:50 | PTCARENOTE ---
sys reviewed, 2 tabs tessalon pearls given for hacking cough
[2023-09-30 04:10] LABS: Blood Urea Nitrogen 19 mg/dl (9-20); Carbon Dioxide 21 mmol/L (22-30); Chloride 110 mmol/L (98-107); Estimated Creatinine Clearance 54 ml/min; Glucose 105 mg/dl (70-99); Magnesium 1.9 mg/dl (1.6-2.3); Potassium 4.2 mmol/L (3.5-5.1); Sodium 135 mmol/L (135-145); eGFR 52.97
--- NOTE | 2023-09-30 04:55 | PTCARENOTE ---
pt has sleep apnea- sats drop to 60, rebound quickly to 94
--- NOTE | 2023-09-30 08:05 | W.PN.INTV ---
Addendum entered and electronically signed by Amadou Beyer MD 10/01/23 10:04:
Patient downgraded to telemetry yesterday. Branding Machine Tender/pulmonary service will sign off. Please reconsult if there are any additional questions/concerns or if respiratory issues develop.
Original Note:
Today's Communication / Plan
Recommendations
Serial H/H and transfuse to keep Hb >7
EGD today --> no source of bleeding found
large bore IV x 1-2
clear liquids after EGD
c-scope tomorrow
Assessment
-
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
consulted for GI bleed/critical care management 09/29/2023.
Assessment
GI bleed
Anemia due to acute blood loss
Bradycardia-heart rate in the 40s -now resolved
CHRISTIE -improved
Metabolic acidosis
Hyperglycemia -resolved
Hiatal hernia
Conditions present prior to admission:
Hypertension.
PAF-on high-dose flecainide and diltiazem
First-degree AV block.
Prior CVA-large left cerebellar, left occipital and left temporal
Cardiac arrest/PEA secondary to hypoxemic respiratory failure during covid infection.
Covid infection requiring hospitalization 05/2021.
Cylindrical bronchiectasis noted on CT 2021
Pulmonary nodule-8 mm right middle lobe noted CT chest 05/2022 recommended to have follow-up 6-12 months-patient never obtained
History of C. difficile colitis-06/2021
Tonsillectomy. Hernia repair. Appendectomy
Plan
Large bore IV x2
EGD today --> TORCH esophagus with 9 cm hiatal hernia and no gross lesions seen in the entire stomach with normal examined duodenum
Plan for colonoscopy tomorrow --> if c-scope normal and H/H stable with no active bleeding seen clinically, then will downgrade to telemetry. Until then, continue to closely monitor in ICU
IVF hydration
Supplemental oxygen as needed
Aspiration precautions
Incentive spirometry
Nebulizers if needed-currently not bronchospastic
Patient has a chronic cough which is off-and-on since 2020 covid infection
Monitor hemoglobin and transfuse to keep Hb >7
Monitor coagulopathy - INR likely elevated secondary to Eliquis
PPI as per GI
Cardiology evaluation-correspondence reviewed
Continue flecainide high-dose and digoxin
Monitor bradycardia with goal HR 60-100
MSAS, thiamine and folate
Monitor renal function
Monitor blood sugar with goal BG 140-180mg/dL
Insulin supplementation as needed
DVT prophylaxis- SCDs; once Hb stable for >72 hrs with no clinical evidence of bleeding and EGD/colonoscopy performed, then can started chemical ppx
GI prophylaxis
Nutrition
Early mobilization
Patient was last seen 05/10/[address] Parks and he canceled his 09/07/2022 appointment-sleep study was recommended at that time, follow-up CT chest was also recommended which patient never obtained-strongly recommend outpatient pulmonary/sleep
disorders follow-up
Critical care statement: A total of 41 minutes of critical care time was provided for this patient today. This includes management of unstable vital signs, management of transfusions, evaluation of the patient at bedside, reviewing the patient's
pertinent medical records including radiographs, microbiology, laboratory evaluations, and discussion with primary team, consultants, pharmacy, nutrition, physical therapy, case management, charge nurse, critical care nursing, and respiratory
therapy.
Diagnostic data:
Chest x-ray 09/29/2023-prominent interstitial markings, interstitial edema or pneumonitis versus acute superimposed on chronic changes
CT chest 09/27/2021-moderate amounts of groundglass opacification, scarring of the right lower lobe, cylindrical bronchiectasis right lower lobe,
CT chest 05/30/2022-groundglass opacification seen on prior CT have significantly improved and resolved, 8 mm nodular opacification peripheral right middle lobe has increased in size compared to prior CT at which time it measured 3 [id number] CT
recommended 6-12 months,
Echocardiogram 05/2021-EF 60-65%, PA systolic 33
Exercise treadmill stress test August 2023-nonspecific ST and T wave changes
PFT 10/26/2021-FEV1 2.7-79%, FVC 3.6-79%, TLC 70%, RV 49%, DLCO 64%, DLCO/VA 91%
Subjective Dataa
Subjective Data
Date of Service:
Date of Service: September 30, 2023
Chief Complaint: Branding Machine Tender Follow Up
Subjective:
Pt seen this AM. BP 147/121, HR 66. He has no complaints -denies abdominal pain, shortness of breath, headache. Awaiting EGD today. Had a bowel movement this morning which she says was 'normal.' Last PRBC transfusion was yesterday evening. Hb
gaby appropriately from 7.3 to 8.4.
Review of Systems
General: Other (negative unless mentioned above)
Objective Data
Data Reviewed
Vital Signs / I&O / Oxygen:
Vital Signs
Temp Pulse Resp BP Pulse Ox
97.8 F 67 13 144/81 91
09/30/23 07:15 09/30/23 06:00 09/30/23 06:00 09/30/23 06:00 09/30/23 06:00
Intake and Output
09/29/23 09/30/23 10/01/23
06:59 06:59 06:59
Intake Total 690 / 800 2360 / 2360
Output Total 100 / 100 1600 / 1600
Balance 590 / 700 760 / 760
SaO2 91
Nasal Cannula flow liters per 2
minute
Physical Exam
General: Respiratory Distress (negative) and Comfortable
HEENT: Normocephalic and Anicteric
Cardiovascular: S1-S2 and Peripheral Edema (negative)
Respiratory: Clear, Wheeze (negative), Crackles (negative) and Rhonchi (negative)
GI: Soft, Non Distended, Non Tender and Normal Bowel Sounds
Neurology: Awake and Alert
Skin: Warm and Dry
Labs/Micro/Reports
Lab Data
09/30/23 03:07
09/30/23 03:07
[2023-09-30] MEDS: NSS 1000 IV (08:46)
[2023-09-30] MEDS: FOLVITE 1 MG PO (08:47)
[2023-09-30] MEDS: THIAMINE INJECTION 200 MG IV ×2 (08:47→19:27)
[2023-09-30] MEDS: TAMBOCOR 100 MG PO (08:47)
--- NOTE | 2023-09-30 09:59 | CM ---
CM following re: discharge planning.
Reviewed pt's chart, met with pt.
Pt is a 62 year old male, admitted with primary dx of GI Bleeding. Acute Blood Loss Anemia.
Pt reports he was born and raised [place] [facility], emig[place] [facility] 3[place]0 years ago and resided with family in [facility]. Pt reports he lives with spouse in a 2SH, 2 steps to enter, has supportive son. Pt described himself as
independent in all areas [employer]TER. No DME, VN or SNF history. Pt reports he had cardiac arrest 8.5 years ago and at that time he went to [facility] acute [facility]. Pt expressed his desire to return back home at discharge with family.
CM consult to assist the pt with alcohol related treatment resources noted. Pt admitted he drinks 2-3 shots of vodka 3-4 times per week, feels it is not a problem, described himself as a social drinker and can easily control alcohol consumption. Pt
declined alcohol related treatment resources, declined meeting with [facility].
PCP: Dian Kumar
Pharmacy: [facility]
D/C plan: home with anticipated no needs. Spouse to transport at discharge.
CM will follow with discharge plan updates as hospitalization progresses
--- NOTE | 2023-09-30 10:56 | PTCARENOTE ---
patient in bed. Walking in a room to bathroom . AAO x3 denies pain. On RA. Frequent dry non-productive cough. S/s of anxiety note . MSAS 0 . BM this am pt flushed before nurse was able to assess. patient reported of stool color was brown with no
blood. pt NPO. on NSS and protonix. Endoscopy schedule for today Eliquis on hold
--- NOTE | 2023-09-30 11:16 | W.PN.CARDCBS ---
Today's Communication / Plan
-
Increase flecainide 150 mg p.o. twice daily
Add low-dose digoxin which should not affect heart rate in sinus rhythm
Hold Eliquis for GI procedures and resume when okay with GI
Okay for GI procedure without further testing
Impression / Plan
-
Impression:
GI bleed with hemoglobin 6.7
Suspect upper GI source with subacute blood loss and iron deficiency
Paroxysmal atrial fibrillation, status post cardioversion November 2022, on high-dose flecainide and diltiazem
History of stroke, large left cerebellar, left occipital and left temporal stroke
Hypertension
History of COVID with respiratory arrest
Hyperlipidemia
History of C. difficile
History of GI bleed 2020
Noncompliance
Exercise treadmill test August 2023: 6 minutes Mike protocol, nonspecific ST and T wave changes at peak
Echocardiogram May 2021: Mild LVH, EF 60-65%, normal RV, normal atria, trace MR, normal aortic valve, pulmonary artery systolic pressure 33
Plan:
Bradycardia has improved
Diltiazem has been discontinued due to bradycardia and flecainide was decreased 150 mg p.o. twice daily to 100 mg p.o. twice daily
Definitely at risk for recurrent A-fib on lower dose of flecainide
Will increase back to 150 mg p.o. twice daily and follow off of diltiazem
We will add low-dose digoxin as patient's with flecainide can be at risk of one-to-one atrial flutter with heart rates over 300 and should be on an AV willi agent and this should not decrease heart rate in sinus rhythm
Eliquis on hold for workup of GI bleeding
Okay for GI procedure without further testing
Progress Note - Computed Tomography Technologist
Subjective
Date of Service: September 30, 2023
No complaints
Objective
Labs:
09/30/23 03:07
09/30/23 03:07
Labs
Hgb 8.4 g/dL (13.0-18.0) L 09/30/23 03:07
Hct 27.3 % (39.0-52.0) L 09/30/23 03:07
Plt Count 303 10^3/uL (130-400) 09/30/23 03:07
PT 22.5 Sec (11.4-14.6) H 09/29/23 04:48
INR 1.99 09/29/23 04:48
APTT 34.4 Sec (23.4-35.0) 09/29/23 04:48
Sodium 135 mmol/L (135-145) 09/30/23 03:07
Potassium 4.2 mmol/L (3.5-5.1) 09/30/23 03:07
BUN 19 mg/dl (9-20) 09/30/23 03:07
Creatinine 1.5 mg/dL (0.7-1.3) H 09/30/23 03:07
Glucose 105 mg/dl (70-99) H 09/30/23 03:07
Troponins
09/28/23
21:10
Troponin I < 0.012
Vital Signs and I&O:
Vital Signs
Temp Pulse Resp BP Pulse Ox
97.8 F 67 17 145/79 96
09/30/23 07:15 09/30/23 10:00 09/30/23 10:00 09/30/23 10:00 09/30/23 10:00
Vital Signs
Temp Pulse Resp BP Pulse Ox
97.8 F 67 17 145/79 96
09/30/23 07:15 09/30/23 10:00 09/30/23 10:00 09/30/23 10:00 09/30/23 10:00
Intake & Output
09/28/23 09/29/23 09/30/23 10/01/23
06:59 06:59 06:59 06:59
Intake Total 690 / 800 2360 / 2470 440 / 440
Output Total 100 / 100 1600 / 1600 600 / 600
Balance 590 / 700 760 / 870 -160 / -160
Physical Exam
Physical Exam
General: Well developed, well nourished in NAD.
Neck: Supple, no JVD, HJR, carotids +2 B/L, no bruits bilaterally.
Heart: Non displaced PMI, RRR, no murmurs, No S3, S4, no rubs.
Lungs: Clear to auscultation bilaterally, no wheeze, rhonchi, rubs bilaterally,
normal expiratory phase.
Extremities: No clubbing, cyanosis or edema bilaterally.
Neuro: Grossly nonfocal, awake, alert and oriented x3.
--- NOTE | 2023-09-30 12:11 | W.PN.HOSP.TC ---
Today's Communication/Plan
-
Monitor vital signs see plan
Monitor hemoglobin
Endoscopy today
Continue with PPI
Assessment / Plan
Assessment / Plan
A/P:� Patient is a 62y M with PMH significant for ASCVD, A-Fib and prior cardiac arrest who presents to ED complaining of abdominal pain and fatigue.
GI Bleeding
Acute Blood Loss Anemia
suspect exacerbated by eliquis
�- Symptoms suggest upper GI source / possible PUD, etc.
�- IV PPI infusion started in the ED.
�- IVF / volume support.
�- Hold Eliquis. restart when ok with GI
�- GI evaluation / patient will likely benefit from EGD.
�- Follow H&H and transfuse additional PRBCs as needed.
1 unit transfused
�- Follow for any evidence of recurrent / ongoing bleeding.
hgb now 8.4
ordered IV Fe
%Fe sat 4%
cw PPI
Paroxysmal Atrial Fibrillation
Bradycardia
�- Monitor on telemetry.� Bradycardia noted in the ED with rates into the 40s.
�- Holding parameters for chronotropic medications.
�- Hold Eliquis given acute bleeding as noted above.
�- Cardiology following; increased flecainide, started on digoxin
Renal Insufficiency
�- Remote baseline of 0.8, but most recent value (04/2022) was 1.6.
�- Seems likely CKD III.
Monitor creatinine
DVT Prophylaxis:� SCDs
Code Status:� Full
General: Well Developed, Well Nourished and No Apparent Distress
HEENT: Normocephalic, Atraumatic and Moist Mucous Membranes
Respiratory: Rales (atelectatic rales rt base); Negative Wheezes or Rhonchi
Cardiac: Regular Rhythm and S1/S2
GI: Nontender and Nondistended
Musculoskeletal: No Clubbing, No Cyanosis and No Edema
Neuro: Awake, Alert and Oriented
Anticipated Discharge: 24 - 48 hours
Subjective/Interval History
-
Date of Service: September 30, 2023
denies pain
Objective Data
-
Labs:
Laboratory Results
09/30/23
03:07
WBC 9.2
Hgb 8.4 L
Hct 27.3 L
Plt Count 303
Sodium 135
Potassium 4.2
Chloride 110 H
Carbon Dioxide 21 L
BUN 19
Creatinine 1.5 H
Glucose 105 H
Calcium 8.0 L
Vital Signs:
Vital Signs
Temp Pulse Resp BP Pulse Ox
98 F 67 17 145/79 96
09/30/23 11:30 09/30/23 10:00 09/30/23 10:00 09/30/23 10:00 09/30/23 10:00
I&O
09/29/23 09/30/23 10/01/23
06:59 06:59 06:59
Intake Total 690 / 800 2360 / 2470 440 / 440
Output Total 100 / 100 1600 / 1600 600 / 600
Balance 590 / 700 760 / 870 -160 / -160
--- NOTE | 2023-09-30 13:20 | W.PN.UPDATE ---
Update Note
Progress Note Update
s/p EGD
- Tortuous esophagus.
- Z-line irregular, 36 cm from the incisors. Biopsied.
- 9 cm hiatal hernia.
- No gross lesions in the entire stomach. Biopsied.
- Normal examined duodenum.
Plan
- Await pathology results.
- Follow an antireflux regimen.
- Use Protonix (pantoprazole) 40 mg PO daily.
- Telephone GI clinic for pathology results in 2 weeks.
- Perform a colonoscopy tomorrow.
- Eventual upper GI study to evaluate the hiatal hernia.
--- NOTE | 2023-09-30 14:34 | PTCARENOTE ---
patient returned from GI lab s/p endoscopy. pt AAO x3. Denies pain . On 2L of oxygen pOX 92% continues with dry frequent non-productive cough. pt on clear liquid diet. Tolerating clears without difficulties. VSS. patient and his aware of
schedule colonoscopy tomorrow am. NSS and Protonix D/c pt level of care downgraded to telemetry
[2023-09-30] MEDS: LANOXIN 125 MCG PO (14:54)
[2023-09-30] MEDS: ROBITUSSIN DM 5 ML PO (14:54)
[2023-09-30] MEDS: FERRLECIT 110 MG IV (16:29)
[2023-09-30] MEDS: GAVILAX 238 GM PO (18:13)
[2023-09-30] MEDS: TAMBOCOR 150 MG PO (19:27)
--- NOTE | 2023-09-30 20:00 | PTCARENOTE ---
Rec'd pt sitting on chair, denies pain, amb to bathroom ad tamela, SR/ SB w/ 1' av block, + pulses, RA, lungs decr in bases, NPC, sat 96, + bowel sounds, abd soft/nontender, alan colonoscopy prep, voids in bathroom
--- NOTE | 2023-09-30 23:19 | PTCARENOTE ---
Report given to 2 [facility], transferred to rm [id number] vi WC on tele accomp by self
--- NOTE | 2023-09-30 23:44 | PTCARENOTE ---
Received patient from ICU via WC. Pt AAOX3. NSR on conveyor monitor. Call agee within reach. Plan of care ongoing.
[2023-10-01 03:34] VITALS: BP 145/69
[2023-10-01 05:07] LABS: % Basophils 1.1 % (0-2); % Eosinophils 5.6 % (0-6); % Immature Granulocytes 0.5 % (0-0.5); % Lymphocytes 10.6 % (20.5-51.1); % Monocytes 16.7 % (1.7-9.3); % Neutrophils 65.5 % (42.2-75.2); Absolute Basophils 0.1 10^3/uL (0-0.2); Absolute Eosinophils 0.5 10^3/uL (0-0.7); Absolute Immature Granulocytes 0.1 10^3/uL (0-0.05); Absolute Monocytes 1.6 10^3/uL (0.1-0.6); Absolute Neutrophils 6.1 10^3/uL (1.4-6.5); Hematocrit 28.7 % (39.0-52.0); Hemoglobin 8.8 g/dL (13.0-18.0); Mean Corp Hgb Conc. 30.7 g/dL (33.0-37.0); Mean Corpuscular Hgb 22.9 pg (27.0-31.0); Mean Corpuscular Volume 74.7 fL (80.0-94.0); Mean Platelet Volume 10.9 fL (7.4-10.4); Nucleated Red Blood Cells % 0.5 % (-); Platelet Count 307 10^3/uL (130-400); Red Blood Cell Count 3.84 10^6/uL (4.70-6.10); Red Cell Dist. Width 19.3 % (11.5-14.5); White Blood Cell Count 9.4 10^3/uL (4.8-10.8)
[2023-10-01] MEDS: GAVILAX 125 GM PO (05:36)
[2023-10-01 05:41] LABS: Blood Urea Nitrogen 9 mg/dl (9-20); Calcium 8.2 mg/dl (8.4-10.2); Carbon Dioxide 24 mmol/L (22-30); Chloride 106 mmol/L (98-107); Estimated Creatinine Clearance 74 ml/min; Glucose 92 mg/dl (70-99); Potassium 3.9 mmol/L (3.5-5.1); Sodium 139 mmol/L (135-145); eGFR > 60.00
[2023-10-01 06:00] VITALS: BMI 27.8
[2023-10-01 07:09] VITALS: BP 136/83
[2023-10-01 09:15] VITALS: BP 119/64; BP_SYST 12
[2023-10-01 09:30] VITALS: BP 125/76; BP_SYST 12
[2023-10-01 09:45] VITALS: BP 114/79
[2023-10-01 09:57] VITALS: BP 132/84
--- NOTE | 2023-10-01 10:39 | W.PN.HOSP.TC ---
Addendum entered and electronically signed by Guru Damon MD 10/01/23 10:55:
Spoke with cardiology. Will stop digoxin and will restart diltiazem at 120 mg. DC med rec updated
Original Note:
Today's Communication/Plan
-
Monitor vitals
See plan
Discharge today
Follow-up with GI and cardiology outpatient
Time of discharge 38 minutes
Assessment / Plan
Assessment / Plan
A/P:� Patient is a 62y M with PMH significant for ASCVD, A-Fib and prior cardiac arrest who presents to ED complaining of abdominal pain and fatigue.
GI Bleeding
Acute Blood Loss Anemia
suspect exacerbated by eliquis
�- Symptoms suggest upper GI source / possible PUD, etc.
�- now on p.o. PPI
�-Restart Eliquis sine ok per GI
�- GI evaluation / patient will likely benefit from EGD.
�- Follow H&H and transfuse additional PRBCs as needed.
1 unit transfused
�- Follow for any evidence of recurrent / ongoing bleeding.
hgb now 8.8
ordered IV Fe
%Fe sat 4%
EGD noted; cscope 10/01 with hemorrhoids
Paroxysmal Atrial Fibrillation
Bradycardia
�- Monitor on telemetry.� Bradycardia noted in the ED with rates into the 40s.
�- Holding parameters for chronotropic medications.
�-Restart Eliquis
�- Cardiology following; increased flecainide, started on digoxin
Renal Insufficiency
Monitor creatinine
DVT Prophylaxis:� SCDs
Code Status:� Full
General: Well Developed, Well Nourished and No Apparent Distress
HEENT: Normocephalic, Atraumatic and Moist Mucous Membranes
Respiratory: Rales (atelectatic rales rt base); Negative Wheezes or Rhonchi
Cardiac: Regular Rhythm and S1/S2
GI: Nontender and Nondistended
Musculoskeletal: No Clubbing, No Cyanosis and No Edema
Neuro: Awake, Alert and Oriented
Anticipated Discharge: Today
Subjective/Interval History
-
Date of Service: October 01, 2023
denies pain
Objective Data
-
Labs:
Laboratory Results
10/01/23
03:59
WBC 9.4
Hgb 8.8 L
Hct 28.7 L
Plt Count 307
Sodium 139
Potassium 3.9
Chloride 106
Carbon Dioxide 24
BUN 9
Creatinine 1.1
Glucose 92
Calcium 8.2 L
Vital Signs:
Vital Signs
Temp Pulse Resp BP Pulse Ox
97.8 F 64 12 132/84 97
10/01/23 09:58 10/01/23 09:57 10/01/23 09:57 10/01/23 09:57 10/01/23 09:57
I&O
09/30/23 10/01/23 10/02/23
06:59 06:59 06:59
Intake Total 2360 / 2470 1260 / 1260
Output Total 1600 / 1600 1800 / 1800
Balance 760 / 870 -540 / -540
[2023-10-01] MEDS: TAMBOCOR 150 MG PO (10:43)
[2023-10-01] MEDS: FLUSH (NSS) 2 FLUSH IV (10:44)
[2023-10-01] MEDS: PROTONIX 40 MG PO (10:44)
[2023-10-01] MEDS: THIAMINE INJECTION 200 MG IV (10:44)
[2023-10-01] MEDS: FOLVITE 1 MG PO (10:44)
--- NOTE | 2023-10-01 10:47 | W.PN.CARDCBS ---
Today's Communication / Plan
-
EGD/colon unremarkable. Hemoglobin stable at 8.8.
Would discharge on flecainide 150 mg p.o. twice daily and diltiazem 120 mg daily. Would stop digoxin.
Okay for discharge.
Impression / Plan
-
Impression:
GI bleed with hemoglobin 6.7
Suspect upper GI source with subacute blood loss and iron deficiency
Paroxysmal atrial fibrillation, status post cardioversion November 2022, on high-dose flecainide and diltiazem
History of stroke, large left cerebellar, left occipital and left temporal stroke
Hypertension
History of COVID with respiratory arrest
Hyperlipidemia
History of C. difficile
History of GI bleed 2020
Noncompliance
Exercise treadmill test August 2023: 6 minutes Mike protocol, nonspecific ST and T wave changes at peak
Echocardiogram May 2021: Mild LVH, EF 60-65%, normal RV, normal atria, trace MR, normal aortic valve, pulmonary artery systolic pressure 33
Plan:
EGD and colon overall unremarkable outside of hemorrhoids. Okay to resume Eliquis and follow hemoglobin.
He remains in sinus rhythm. Would stop digoxin and discharged on flecainide 150 mg p.o. twice daily and diltiazem 120 mg daily. This is a lower dose of diltiazem for him.
Okay for discharge from cardiology standpoint.
Progress Note - Floorworker
Subjective
Date of Service: October 01, 2023
Overall feels well. No further A-fib. Colonoscopy and EGD are finished.
Objective
Labs:
10/01/23 03:59
10/01/23 03:59
Labs
Hgb 8.8 g/dL (13.0-18.0) L 10/01/23 03:59
Hct 28.7 % (39.0-52.0) L 10/01/23 03:59
Plt Count 307 10^3/uL (130-400) 10/01/23 03:59
PT 22.5 Sec (11.4-14.6) H 09/29/23 04:48
INR 1.99 09/29/23 04:48
APTT 34.4 Sec (23.4-35.0) 09/29/23 04:48
Sodium 139 mmol/L (135-145) 10/01/23 03:59
Potassium 3.9 mmol/L (3.5-5.1) 10/01/23 03:59
BUN 9 mg/dl (9-20) 10/01/23 03:59
Creatinine 1.1 mg/dL (0.7-1.3) 10/01/23 03:59
Glucose 92 mg/dl (70-99) 10/01/23 03:59
Troponins
09/28/23
21:10
Troponin I < 0.012
Vital Signs and I&O:
Vital Signs
Temp Pulse Resp BP Pulse Ox
97.8 F 64 12 132/84 97
10/01/23 09:58 10/01/23 09:57 10/01/23 09:57 10/01/23 09:57 10/01/23 09:57
Vital Signs
Temp Pulse Resp BP Pulse Ox
97.8 F 64 12 132/84 97
10/01/23 09:58 10/01/23 09:57 10/01/23 09:57 10/01/23 09:57 10/01/23 09:57
Intake & Output
09/29/23 09/30/23 10/01/23 10/02/23
06:59 06:59 06:59 06:59
Intake Total 690 / 800 2360 / 2470 1260 / 1260
Output Total 100 / 100 1600 / 1600 1800 / 1800
Balance 590 / 700 760 / 870 -540 / -540
Physical Exam
Physical Exam
GEN: No distress, awake, Ox3
HEENT: supple, anicteric, mmm
LUNGS: CTA, no wheezes/rales
CV: Reg, S1/S2, 1/6 syst LSB, no gallop
ABD: soft, BS+, NT/ND
EXT: No edema
NEURO: Gross non-focal
SKIN: No rash
--- NOTE | 2023-10-01 10:48 | W.DCSUMMARY ---
Discharge Summary
Discharge Data
Date of Admission: 09/28/23
Date of Discharge: 10/01/23
-
Pending Results: No
Hospital Course
62-year-old male with past medical history of A-fib, CAD came to the hospital with abdominal pain and fatigue noted to have anemia and suspected GI bleed. Patient was seen by gastroenterology throughout hospitalization. Patient was initially put
on IV Protonix. Patient underwent endoscopy which did not show any signs of ulcer. Later on he underwent colonoscopy which was positive for hemorrhoids. He did require blood transfusion on his hospitalization. On discharge his hemoglobin was
8.8. He also received IV iron. His hospital course was also complicated by bradycardia initially for which his medications were changed by cardiology. On discharge his digoxin was discontinued and he was started back on 120 mg of Cardizem. Once
his symptoms improved he was then discharged home with instructions to follow-up with all his physicians outpatient.
Discharge Plan
-
Patient Disposition: Home (Routine Discharge)
Discharge Diagnosis/Procedures: Gastrointestinal bleeding
Hemorrhoid's
Renal insufficiency
Paroxysmal atrial fibrillation with periods of bradycardia
Activity: As tolerated
Driving Restrictions: As prior to admission
Bathing Restrictions: None
Referrals:
Moiz Urena MD [Active] - in two to four weeks (Previously seen by Dr. Parks-has pulmonary nodule that needs follow-up, sleep study, and PFTs with chronic cough)
Fran Johnson MD [Active] -
Dian Kumar CRNP [Family Provider] - in less than 1 week
Prescriptions:
New
thiamine HCl (vitamin B1) 100 mg Tablet
100 mg PO BID Qty: 60 0RF
benzonatate 100 mg Capsule
200 mg PO TIDPRN PRN (Reason: cough) Qty: 14 0RF
pantoprazole 40 mg Tablet,Delayed Release (Dr/Ec)
40 mg PO DAILY Qty: 30 0RF
folic acid 1 mg Tablet
1 mg PO DAILY Qty: 30 0RF
diltiazem HCl 120 mg capsule,extended release 24hr
120 mg PO DAILY Qty: 30 0RF
Continued
folic acid 1 MG tablet
1 mg PO DAILY
rosuvastatin 40 MG tablet
40 mg PO DAILY
Eliquis 5 MG tablet
5 mg PO BID
flecainide [Tambocor] 150 MG tablet
150 mg PO BID
cyanocobalamin (vitamin B-12) [Vitamin B-12] 1,000 mcg Tablet
1,000 mcg PO DAILY
cholecalciferol (vitamin D3) [Vitamin D3] 25 mcg (1,000 unit) Capsule
25 mcg PO DAILY
ascorbic acid (vitamin C) [Vitamin C] 500 MG tablet
500 mg PO BID
valsartan 40 mg Tablet
40 mg PO DAILY
Discontinued
diltiazem HCl 120 MG capsule,extended release 24hr
240 mg PO DAILY
Discharge Orders:
Discharge Patient (As Directed); Ordered 10/01/23
Ordered By: Guru Damon
Discharge Date and Time
Discharge Date/Time: 10/01/23 12:55
--- NOTE | 2023-10-01 10:57 | PTCARENOTE ---
Patient returned from pacu post colonoscopy.Patient denies any pain and says he feels great.Patient now on a regular diet.There was no evidence of bleeding found during the procedure.Plan is for a regular diet and probable discharge to home.
--- NOTE | 2023-10-01 11:48 | CM ---
CM following re: discharge planning.
Reviewed pt's chart, met with pt.
Discharge order noted. Pt is aware, expressed his agreement with discharge and pt's stated his son will transport home. IMM reviewed, placed on chart, pt has a copy.
D/C plan: home with no needs. Son to transport.
[2023-10-01 13:41] LABS: tTG IgA Antibody 7.2 EU/ml (0-19); tTG IgG Antibody 7.7 EU/ml (0-19)
[2023-10-02 17:47] LABS: Endomysial IgA Antibody Titer <1:10 (<1:10)
== END 2023-10-01 12:55 | disposition home or self-care (01) | DRG 378 ==
LOC: 2 SOUTH 23:00
PROVIDERS: Internal Medicine; Internal Medicine Critical Care Medicine; Internal Medicine Gastroenterology; Nurse Practitioner Family; ADMITTING PHYSICIAN Hospitalist; ATTENDING PHYSICIAN Internal Medicine; CONSULT PHYSICIAN Internal Medicine Cardiovascular Disease; CONSULT PHYSICIAN Internal Medicine Critical Care Medicine; CONSULT PHYSICIAN Internal Medicine Gastroenterology; EMERGENCY PHYSICIAN Emergency Medicine; FAMILY PHYSICIAN Nurse Practitioner Family
PROC: 30233N1 Transfusion of Nonautologous Red Blood Cells into Peripheral Vein, Percutaneous Approach (ICD-10-PCS; 2023-09-28)
PROC: 0DB68ZX Excision of Stomach, Via Natural or Artificial Opening Endoscopic, Diagnostic (ICD-10-PCS; 2023-09-30)
PROC: 0DJD8ZZ Inspection of Lower Intestinal Tract, Via Natural or Artificial Opening Endoscopic (ICD-10-PCS; 2023-10-01)
DX: K92.2 Gastrointestinal hemorrhage, unspecified (principal); D62 Acute posthemorrhagic anemia; N17.9 Acute kidney failure, unspecified; E87.20 Acidosis, unspecified; K64.0 First degree hemorrhoids; I48.0 Paroxysmal atrial fibrillation; Z86.73 Personal history of transient ischemic attack (TIA), and cerebral infarction without residual deficits; I25.10 Atherosclerotic heart disease of native coronary artery without angina pectoris; I44.0 Atrioventricular block, first degree; Z86.16 Personal history of COVID-19; Z87.891 Personal history of nicotine dependence; Z91.199 Patient's noncompliance with other medical treatment and regimen due to unspecified reason; Z86.74 Personal history of sudden cardiac arrest; E78.5 Hyperlipidemia, unspecified; I12.9 Hypertensive chronic kidney disease with stage 1 through stage 4 chronic kidney disease, or unspecified chronic kidney disease; N18.30 Chronic kidney disease, stage 3 unspecified; R73.9 Hyperglycemia, unspecified
CPT/HCPCS: 88305; 36430; 71045; 80048; 80053; 80143; 80306; 80307; 82010; 82077; 82607; 82746; 82784; 83516; 83540; 83550; 83690; 83735; 84484; 85014; 85018; 85025; 85027; 85610; 85730; 86231; 86850; 86900; 86901; 86920; 88342; 93005; 96365; 96366; 96375; 99291; J2916; P9016

== ENCOUNTER → 2024-12-08 16:05 | Outpatient (REF) | payer OTHER, SELFPAY | LOC: RAD 16:05 | PROVIDERS: ATTENDING PHYSICIAN Podiatrist Foot Surgery; FAMILY PHYSICIAN Nurse Practitioner Family | DX: S90.452A Superficial foreign body, left great toe, initial encounter (principal) | CPT/HCPCS: 73630 ==

== ENCOUNTER → 2024-12-23 15:31 | Outpatient (REF) | payer OTHER, SELFPAY ==
[2024-12-23 17:21] LABS: % Basophils 0.8 % (0-2); % Eosinophils 0.8 % (0-6); % Immature Granulocytes 0.1 % (0-0.5); % Lymphocytes 24.9 % (20.5-51.1); % Monocytes 10.5 % (1.7-9.3); % Neutrophils 62.9 % (42.2-75.2); Absolute Basophils 0.1 10^3/uL (0-0.2); Absolute Eosinophils 0.1 10^3/uL (0-0.7); Absolute Lymphocytes 2.2 10^3/uL (1.2-3.4); Absolute Monocytes 0.9 10^3/uL (0.1-0.6); Absolute Neutrophils 5.4 10^3/uL (1.4-6.5); Hematocrit 41.4 % (39.0-52.0); Hemoglobin 14.1 g/dL (13.0-18.0); Mean Corp Hgb Conc. 34.1 g/dL (33.0-37.0); Mean Corpuscular Hgb 31.3 pg (27.0-31.0); Mean Corpuscular Volume 91.8 fL (80.0-94.0); Mean Platelet Volume 10.1 fL (7.4-10.4); Nucleated Red Blood Cells % 0 % (-); Platelet Count 344 10^3/uL (130-400); Red Blood Cell Count 4.51 10^6/uL (4.70-6.10); Red Cell Dist. Width 12.2 % (11.5-14.5); White Blood Cell Count 8.6 10^3/uL (4.8-10.8)
[2024-12-23 17:38] LABS: ALT (SGPT) 54 U/L (0-50); AST (SGOT) 46 U/L (17-59); Albumin 4.3 g/dl (3.5-5.0); Alkaline Phosphatase 98 U/L (38-126); Blood Urea Nitrogen 14 mg/dl (9-20); Calcium 9.7 mg/dl (8.4-10.2); Carbon Dioxide 27 mmol/L (22-30); Chloride 105 mmol/L (98-107); Glucose 109 mg/dl (70-99); HDL Cholesterol 58 mg/dl; LDL Cholesterol, Calculated 81 mg/dl; Potassium 4.4 mmol/L (3.5-5.1); Sodium 141 mmol/L (135-145); Total Bilirubin 0.6 mg/dl (0.2-1.3); Total Cholesterol 191 mg/dl (50-199); Total Protein 7.3 g/dl (6.3-8.2); Triglyceride 262 mg/dl (10-149); Very Low Density Lipoprotein 52 mg/dl (0-30); eGFR > 60.00
[2024-12-23 18:06] LABS: TSH 1.33 uIU/ml (0.47-4.68)
[2024-12-24 10:52] LABS: Glycohemoglobin (HgbA1c) 5.9 % (4.0-5.6)
== END ==
LOC: REG 15:31
PROVIDERS: ATTENDING PHYSICIAN Nurse Practitioner Family; REFERRING PHYSICIAN Internal Medicine Cardiovascular Disease
DX: E78.5 Hyperlipidemia, unspecified (principal); I10 Essential (primary) hypertension; Z12.5 Encounter for screening for malignant neoplasm of prostate; R73.03 Prediabetes
CPT/HCPCS: 36415; 80053; 80061; 83036; 84443; 85025; G0103

== ENCOUNTER → 2025-04-14 15:42 | Outpatient (REF) | payer OTHER, SELFPAY | LOC: MRI 3T 15:42 | PROVIDERS: ATTENDING PHYSICIAN Podiatrist Foot Surgery; FAMILY PHYSICIAN Family Medicine | DX: M86.172 Other acute osteomyelitis, left ankle and foot (principal) | CPT/HCPCS: 73718 ==